=== PATIENT | male | born 1965 | race Caucasian/White ===

== ENCOUNTER 2020-08-21 07:10 | Emergency (ER) | payer OTHER ==
[2020-08-21 07:38] VITALS: BP 152/79; PULSE 82; TEMP 98.4; BMI 25.1
[2020-08-21] MEDS ORDERED: TETRACAINE 0.5% HCL 0.6ML DROPPER.BOTTLE OD ONE (08:12)
[2020-08-21] MEDS ORDERED: FLUORESCEIN NA 1 EA STRIP OD ONE (08:13)
[2020-08-21] MEDS ORDERED: TETRACAINE 0.5% OPHTH SOLN 2 ML BOTTLE ONE (08:15)
[2020-08-21] MEDS ORDERED: FLUORESCEIN NA 1 EA STRIP ONE (08:15)
== END 2020-08-21 08:40 | disposition home or self-care (01) ==
LOC: JER 07:10
DX: T15.91XA Foreign body on external eye, part unspecified, right eye, initial encounter (principal)
CPT/HCPCS: 99283-25

== ENCOUNTER 2021-06-29 06:26 | Emergency (ER) | payer BC, OTHER ==
[2021-06-29 07:03] VITALS: BP 131/72; PULSE 78; TEMP 97.8; BMI 21.9
[2021-06-29 09:17] LABS: HEMATOCRIT 34.4 % (35.4-49); HEMOGLOBIN 11.6 GM/dL (11.7-16.9); MCH 27.9 pg (25.7-33.7); MCHC 33.8 g/dl (32.0-35.9); MEAN CELL VOLUME 82.6 fl (80-96); MEAN PLT VOLUME 8.3 fl (7.5-11.1); PLATELET COUNT 219 10^3/uL (134-434); RBC 4.16 M/mm3 (4.00-5.60); RDW 13.9 % (11.9-15.9)
[2021-06-29 09:39] LABS: CHLORIDE 105 mmol/L (98-107); SODIUM 137 mmol/L (136-145)
[2021-06-29 09:41] LABS: ANION GAP 8 MMOL/L (8-16); BLOOD UREA NITROGEN 11.8 mg/dL (7-18); CALCIUM 8.3 mg/dL (8.5-10.1); CO2 24 mmol/L (21-32)
[2021-06-29 09:42] LABS: ALBUMIN 2.9 g/dl (3.4-5.0); GLUCOSE,RANDOM 78 mg/dL (74-106)
[2021-06-29 09:44] LABS: SGPT/ALT 22 U/L (13-61)
[2021-06-29 09:45] LABS: CREATININE 0.8 mg/dL (0.55-1.3); SGOT/AST 34 U/L (15-37)
[2021-06-29 09:46] LABS: BILIRUBIN,TOTAL 0.6 mg/dL (0.2-1); TOT PROT 7.8 g/dl (6.4-8.2)
[2021-06-29 09:47] LABS: ALK PHOS 66 U/L (45-117)
[2021-06-29 09:56] LABS: ERYTHROCYTE SEDIMENTATION RATE 85 mm/hr (0-20)
[2021-06-29 11:18] LABS: ANISOCYTOSIS 0; MACROCYTOSIS 0; PLATELET ESTIMATE NORMAL
== END 2021-06-29 10:40 | disposition home or self-care (01) ==
LOC: JER 06:26
DX: I73.00 Raynaud's syndrome without gangrene (principal); L98.491 Non-pressure chronic ulcer of skin of other sites limited to breakdown of skin; L81.9 Disorder of pigmentation, unspecified
CPT/HCPCS: 36415; 80053; 84443; 84484; 85025; 85651; 93005; 93010; 99284-25